=== PATIENT | male | born 1975 | race Caucasian/White ===

== ENCOUNTER → 2025-02-25 17:43 | Outpatient (CLI) | payer OTHER, SELFPAY ==
--- NOTE | 2025-02-25 17:51 | DI.RAD.S_ITS ---
PROCEDURE: XR HIP W PEL IF DONE LT 2V INDICATIONS: HIP PAIN TECHNIQUE: 2 views of the hip were acquired. COMPARISON: None. FINDINGS: Mild degenerative changes of the left hip Kellgren Edgar grade 2. Moderate degenerative changes of the right hip calc grand large grade 3. Two small 3-4 mm calcifications are noted in the midline pelvis just cephalad to the pubic symphysis possible phleboliths, bladder calcifications or other calcifications of unknown clinical relevance. Surgical clips status post right inguinal hernia repair. No radiographic evidence of displaced fracture, dislocation or high attenuation foreign body. IMPRESSION: Degenerative changes as discussed above. Pelvic calcifications. If symptoms persist or worsen, or there is high clinical suspicion of pelvic/hip abnormality, CT or MRI could be performed. Dictated by: Augustus Contreras M.D. on 02/26/2025 at 15:00 Approved by: Augustus Contreras M.D. on 02/26/2025 at 15:03
== END ==
PROVIDERS: PCP Nurse Practitioner Acute Care; Visit Provider Nurse Practitioner Family
DX: M25.859 Other specified joint disorders, unspecified hip (principal)
CPT/HCPCS: 73502

== ENCOUNTER → 2025-03-12 15:16 | Outpatient (CLI) | payer OTHER, SELFPAY ==
--- NOTE | 2025-03-12 15:17 | DI.NM.S_ITS ---
PROCEDURE: NM EXERCISE TREADMILL NON NUC COMPARISON: None. INDICATIONS: PALPITATIONS FINDINGS: Patient exercised per the standard Anil protocol. Total exercise time was 9 minutes and 13 seconds. Test was terminated secondary to fatigue. Maximal heart rate attained is 166 bpm which is 98% of max predicted heart rate. Maximum blood pressure was 200/90[place] [address]. ASTON +9%. 10.1 METS. No ischemic changes noted. Frequent PVCs noted during the stress phase. 2 episodes of nonsustained ventricular tachycardia of 3 beats noted in early recovery. No chest pains voiced. Normal heart rate with hypertensive response to exercise. IMPRESSION: 1. Positive exercise treadmill stress test for ischemia due to presence of exercise-induced ventricular ectopy and nonsustained ventricular tachycardia present in early recovery. 2. Slightly reduced exercise capacity. 3. Hypertensive response to exercise. Dictated by: Riky Copeland M.D. on 03/12/2025 at 17:18 Approved by: Riky Copeland M.D. on 03/12/2025 at 17:20
== END ==
LOC: NUCM 15:16
PROVIDERS: PCP Nurse Practitioner Acute Care; Referring Provider Internal Medicine Cardiovascular Disease; Visit Provider Internal Medicine Cardiovascular Disease
DX: R94.39 Abnormal result of other cardiovascular function study (principal); R03.0 Elevated blood-pressure reading, without diagnosis of hypertension; I49.3 Ventricular premature depolarization; R00.2 Palpitations; R07.2 Precordial pain; Z98.890 Other specified postprocedural states
CPT/HCPCS: 93017